=== PATIENT | male | born 1950 | race Caucasian/White ===

== ENCOUNTER → 2016-02-14 | Outpatient (CLI) | payer OTHER, MEDICARE ==
[2016-02-15 06:38] LABS: HEMOGLOBIN A1C 8.13 % (4.2-6.0); MEAN BLOOD GLUCOSE (CALC) 184.729 mg/dL
[2016-02-15 08:12] LABS: CREATININE, URINE 93.7 MG/DL (15-500)
== END ==
LOC: LAB 10:59
PROVIDERS: ATTEND Nurse Practitioner Family
DX: E11.9 Type 2 diabetes mellitus without complications (principal)
CPT/HCPCS: 36415; 82043; 83036

== ENCOUNTER → 2016-02-27 | Outpatient (CLI) | payer OTHER, MEDICARE | LOC: MMPC 11:11 | PROVIDERS: ATTEND Nurse Practitioner Family | DX: E11.9 Type 2 diabetes mellitus without complications (principal); L40.9 Psoriasis, unspecified; E78.5 Hyperlipidemia, unspecified | CPT/HCPCS: G0402; G0463 ==